=== PATIENT | male | born 1945 | race Caucasian/White ===

== ENCOUNTER → 2017-08-16 18:49 | Outpatient (CLI) | payer MEDICARE, SELFPAY ==
--- NOTE | 2017-08-16 | CYSPIN_PTH ---
PATIENT: BEV SCHROEDER LOC: [facility] U#:[id number] AGE/SX: 80/M ROOM: RE08/16/[address]: Dr. Jacinto Munguia MD : 1945 BED: DIS: SPEC #: [id number] RECD: 08/17/17 13:20 STATUS: NIKI YANIRA #: [id number] MAC: 08/16/17 00:[address]: Jacinto Munguia DEPT: CYTOLOGY RECD BY: Lucius Grubbs Tissues: Urine Procedures: Pap Stain (control) Special Stain Group II Cytospin Fluid HEADER OPERATION: Not noted PRE-OP DIAGNOSIS: Hematuria R31.9 TISSUE SUBMITTED: Urine for cytology DIAGNOSIS CYTOLOGY Urine for cytology (cytospin): Negative for malignant cells. SJ:félix 08/18/17 COMMENT Clinical correlation and appropriate follow up are necessary. CYTOLOGY STUDY Slides are reviewed. The specimen consists of benign squamous cells, urothelial cells, numerous crystals, inflammatory cells and organisms consistent with bacteria. CYTOLOGY GROSS Received is 60 ml of gold, clear fluid labeled with the patient's name and and designated per the requisition as urine. Submitted for cytology preparation. 08/17/17 TC:5 CPT: 67614
[2017-08-16 18:52] LABS: Cytology, Body Fluid / CSF SEE PATHOLOGY REPORT
== END ==
PROVIDERS: Visit Provider Urology
DX: R31.9 Hematuria, unspecified (principal)
CPT/HCPCS: 88108; 88313

== ENCOUNTER → 2017-08-22 08:33 | Outpatient (CLI) | payer MEDICARE, SELFPAY ==
--- NOTE | 2017-08-22 08:37 | US_ITS ---
US Kidney(s) complete (eg, kidneys T bladder) INDICATION: hematuria COMPARISON: None TECHNIQUE: Ultrasonographic grayscale and Doppler investigation of the kidneys and urinary bladder FINDINGS: The right kidney measures 11.3 x 6.0 x 6.4 cm with a cortical thickness of 2.2 cm. A 1.8 cm cyst is present. There is no evidence of hydronephrosis or shadowing calculus. The left kidney measures 12.2 x 6.1 x 5.3 cm with a cortical thickness of 1.3 cm. There is no evidence of hydronephrosis, cyst, or shadowing calculus. The urinary bladder contains 190 mL at the time of this scan and appears unremarkable. Wall thickness measures 2.6 mm. Bilateral ureteral jets are seen. US/Kidney and Bladder IMPRESSION: Negative retroperitoneal ultrasound. Consider further evaluation with CT urogram (triple phase) if hematuria persists to rule out mass. at 1725 Reported and signed by: Goldie Javier MD Electronically Signed: Goldie Javier MD at 16:23 EST Tel , Service support ,
== END ==
PROVIDERS: Visit Provider Urology
DX: R31.9 Hematuria, unspecified (principal)
CPT/HCPCS: 76770

== ENCOUNTER → 2023-12-23 | Outpatient (CLI) | payer MEDICARE, SELFPAY ==
--- NOTE | 2023-12-23 12:17 | CT_ITS ---
STUDY: CT ABDOMEN AND PELVIS WITH AND WITHOUT CONTRAST REASON FOR EXAM: Male, 78 years old. GROSS HEMATURIA. History of prostate cancer and radiation. Urethral stricture. RADIATION DOSAGE (If Supplied By Facility): CTDIvol = ( 19.57 ) mGy, DLP = ( 3740.08 ) mGycm TECHNIQUE: Transaxial images were obtained from the dome of the diaphragm to the symphysis pubis without oral contrast. IV 100mL Isovue-300 was administered. Sagittal and coronal images were reconstructed. Individualized dose optimization techniques were used for this CT. COMPARISON: None. FINDINGS: The visualized lung bases are unremarkable. Coronary artery calcification. Normal liver. Multiple small gallstones. Normal spleen. Normal pancreas. Normal bilateral adrenal glands. Small right renal cysts. Normal left kidney. Normal visualized stomach. Normal small intestine. There are scattered colonic diverticula consistent with diverticulosis. The appendix is visualized and appears normal. There is scattered atherosclerotic calcification of the abdominal aorta, without a demonstrated aneurysm. Normal inferior vena cava. Normal retroperitoneum. Mild degree of nonspecific increased markings in the fat of the root of the mesentery. Diffuse bladder wall thickening. The prostate measures 3.7 cm x 5.5 cm. Central calcification is seen. There is a small umbilical hernia containing fat. There are degenerative changes of the visualized lumbar spine. CT/CT Abd/Pelvis W/WO Contrast IMPRESSION: Multiple small gallstones. Small right renal cysts. Diffuse bladder wall thickening and hypertrophy of the prostate with central calcification. Electronically Signed: Ajay Jane MD at 15:20 EDT ,
[2023-12-23 12:45] LABS: CREATININE FINGERSTICK < 1.0 mg/dL (0.70-1.30); EGFR FINGERSTICK > 60.0000 mL/min (>60)
== END | disposition home or self-care (01) ==
PROVIDERS: PCP Internal Medicine; Referring Provider Urology; Visit Provider Urology
DX: Z01.812 Encounter for preprocedural laboratory examination (principal); R31.0 Gross hematuria
CPT/HCPCS: 74178; Q9967